=== PATIENT | female | born 1955 | race African-American/Black ===

== ENCOUNTER → 2016-10-03 | Outpatient (CLI) | payer OTHER ==
[~2016-10-03] MED LIST: DELTASONE20 MG PO; GLUCOPHAGE500 MG PO; HYDROXYCHLOROQ200 M1 PO; LOPRESSOR; NAPROSYN500 MG PO; PRILOSEC 20 MG20 MG PO; TRAMADOL 50 MG50 MG PO; VENTOLIN HFA 1818 GM INH
== END ==
LOC: RAD 14:49
DX: Z12.31 Encounter for screening mammogram for malignant neoplasm of breast (principal)